=== PATIENT | female | born 1950 | race Caucasian/White ===

== ENCOUNTER → 2019-05-21 | Outpatient (CLI) | payer MEDICARE, OTHER ==
--- NOTE | 2019-05-23 08:29 | MAM ---
EXAM DESCRIPTION: 3D Screening BILATERAL : Digital Mammography. CLINICAL HISTORY: 68 years Female ANNUAL SCREENING . No complaints. No personal history of breast cancer. Remote family history of breast cancer. Childbirth. Menopause 35+ years. No HRT. Lifetime risk of developing breast cancer (Tyrer-Cuzick model)(%): 4.9. COMPARISON: Baseline study at this facility.. No prior reports available. TECHNIQUE: Bilateral CC and MLO projection full-field images, digital tomosynthesis mammographic technique. Bilateral digital 2-D full-field MLO images. CAD not available for tomosynthesis or 2-D images. FINDINGS: The breast parenchymal density pattern is: Scattered areas of fibroglandular density. No skin thickening or nipple retraction. Bilateral solitary microcalcifications. Focal asymmetry in the middle third of the right breast at the 1:00 position 6.5 cm from the nipple. No focal, stellate mass or density, focal asymmetry , and no suspicious microcalcifications right breast. IMPRESSION: BI-RADS CATEGORY: 0 - INCOMPLETE- Need additional imaging evaluation. FOLLOW-UP: Recall for additional imaging: Diagnostic full field left breast tomosynthesis and 2-D images LM projection. Targeted left breast ultrasound.. Written communication concerning the IMPRESSION and Follow-up, will be mailed to the patient and referring health care provider. Electronically signed by: Arnold Redman MD 05/23/2019 8:27 AM CDT
== END ==
LOC: MAMMO 14:50
PROVIDERS: ATTEND Nurse Practitioner Family
DX: Z12.31 Encounter for screening mammogram for malignant neoplasm of breast (principal)

== ENCOUNTER → 2019-06-05 | Outpatient (CLI) | payer MEDICARE, OTHER ==
--- NOTE | 2019-06-06 20:15 | US ---
EXAM DESCRIPTION: Breast,Left (accession [id number]), 3D Diagnostic, Left (accession [id number]): Ultrasound CLINICAL HISTORY: 68 yearsFemaleABNORMAL MAMMO focal asymmetry anterior upper left breast. COMPARISON: Bilateral screening digital breast tomosynthesis 05/21/2019. TECHNIQUE: Left breast LM projection full-field images, digital mammographic tomosynthesis technique. Left breast 2-D digital full-field images. LM and CC projections. CAD not utilized. . Transcutaneous scanning of the left breast utilizing glaser-scale and Doppler modes. Scanning performed by the government affairs specialist and Dr. Redman. FINDINGS: The breast parenchymal density pattern is: Scattered areas of fibroglandular density. No skin thickening or nipple retraction focal asymmetry visualized on the LM tomosynthesis and 2-D images. No microcalcifications. No new focal, stellate mass or density, , and no suspicious microcalcifications left breast. Ultrasound: Scanning of the upper outer quadrant of the anterior middle third of the left breast. Emphasis on the 1:00 position 6 cm from the nipple. Mostly fibroglandular tissues more than fatty tissues. No dominant solid mass. No distinct cyst. No parenchymal edema or large calcifications. IMPRESSION: Benign exam. BIRAD CATEGORY: 2 BENIGN FINDINGS. RECOMMENDATIONS: FOLLOW UP: Routine digital bilateral mammographic screening, one year interval from May 2019. Written communication explaining the IMPRESSION and follow-up, will be mailed to the patient and referring health care provider. The FINDINGS and the FOLLOW-UP plan were reviewed in person with the patient after the examination. According to the [employer], yearly mammograms are recommended starting at age 40 and continuing as long as a woman is in good health. Any breast change noted on a breast self-exam should be reported promptly to the patient's healthcare provider. Breast MRI is recommended for women with an approximately 20-25% or greater lifetime risk of breast cancer, including women with a strong family history of breast or ovarian cancer and women who have been treated for Hodgkin's disease. A negative mammographic report should not delay tissue diagnosis in patients with significant clinical history or physical findings. Extremely dense breast tissue limits the sensitivity of digital mammography. Electronically signed by: Arnold Redman MD 06/06/2019 8:13 PM CDT
== END ==
LOC: US 11:00
PROVIDERS: ATTEND Nurse Practitioner Family
DX: R92.8 Other abnormal and inconclusive findings on diagnostic imaging of breast (principal)
CPT/HCPCS: 76641; 77065; G0279

== ENCOUNTER 2019-06-13 05:38 | Day surgery (SDC) | payer MEDICARE, OTHER ==
[2019-06-13] MEDS ORDERED: LACTATED RINGERS 1,000 ML ONE (07:00)
[2019-06-13] MEDS ORDERED: PROPOFOL 200 MG/20 ML VIAL IV ONE (07:00)
[2019-06-13] MEDS ORDERED: LIDOCAINE 1% 10 ML VIAL INJ ONE (07:00)
[2019-06-13] MEDS ORDERED: MIDAZOLAM INJ 2 MG/2 ML VIAL ONE (07:50)
--- NOTE | 2019-06-13 09:07 | OP ---
DATE OF PROCEDURE: 06/13/19 PREOPERATIVE DIAGNOSIS: 1. Screening colonoscopy. POSTOPERATIVE DIAGNOSIS: 1. Screening colonoscopy. PROCEDURE: 1. Colonoscopy. SURGEON: Rodrigo Greenwood MD ANESTHESIA: General. FINDINGS: Diverticulosis. No polyps. PROCEDURE: After complete informed consent and adequate prep, digital rectal exam was normal. The colonoscope was passed without difficulty to the cecum. The appendiceal orifice was identified. The terminal ileum was not intubated. No abnormalities were seen in the ascending, transverse and descending colon. The sigmoid colon had diverticulosis, no evidence of polyps or bleeding. Retroflexion revealed normal rectum with no significant hemorrhoids. The procedure was completed. The patient tolerated the procedure well. She was taken to Recovery to be discharged. #[id number] MTDD
[2019-06-13 09:48] VITALS: BP 159/51; TEMP 97.7; O2SAT 100
== END 2019-06-13 09:40 | disposition home or self-care (01) ==
LOC: AMB 05:38
PROVIDERS: ATTEND Surgery
DX: Z12.11 Encounter for screening for malignant neoplasm of colon (principal); K57.30 Diverticulosis of large intestine without perforation or abscess without bleeding; J45.909 Unspecified asthma, uncomplicated; Z90.710 Acquired absence of both cervix and uterus; Z88.0 Allergy status to penicillin; Z88.5 Allergy status to narcotic agent; Z88.8 Allergy status to other drugs, medicaments and biological substances; Z79.899 Other long term (current) drug therapy
CPT/HCPCS: 00812; G0121; J2250; J3490; J7120

== ENCOUNTER → 2019-09-09 | Outpatient (CLI) | payer MEDICARE, OTHER | LOC: LAB.O 09:17 | PROVIDERS: ATTEND Internal Medicine Interventional Cardiology | DX: E78.5 Hyperlipidemia, unspecified (principal) ==

== ENCOUNTER → 2019-10-01 | Outpatient (CLI) | payer MEDICARE, OTHER ==
--- NOTE | 2019-10-01 14:16 | RAD ---
EXAM DESCRIPTION: Lumbar Spine 5 Views CLINICAL HISTORY: 69 years Female, SCIATICA RIGHT SIDE COMPARISON: None. TECHNIQUE: 5 views of the lumbar spine were obtained. FINDINGS: Straightening of the normal lordotic curvature of the lumbar spine. Mild multilevel degenerative disc disease and facet arthropathy. No evidence of spondylolysis or spondylolisthesis. IMPRESSION: Mild multilevel degenerative disc disease and facet arthropathy. No evidence of spondylolysis or spondylolisthesis. Electronically signed by: Kory Escoto MD 10/01/2019 2:14 PM [facility]
== END ==
LOC: RAD 12:18
PROVIDERS: ATTEND Nurse Practitioner Family
DX: M54.31 Sciatica, right side (principal); M51.36 Other intervertebral disc degeneration, lumbar region; M12.9 Arthropathy, unspecified